=== PATIENT | female | born 2005 | race Caucasian/White ===

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

== ENCOUNTER 2024-07-17 05:44 | Emergency (ER) | payer BC, OTHER ==
[2024-07-17] MEDS: Ondansetron 4 MG Tab.DIS PO ONE (05:58)
== END 2024-07-17 07:15 | disposition home or self-care (01) ==
LOC: LL.ED 05:44
DX: S00.03XA Contusion of scalp, initial encounter (principal); Z79.899 Other long term (current) drug therapy; Z91.013 Allergy to seafood; W22.8XXA Striking against or struck by other objects, initial encounter
CPT/HCPCS: 70450; 99283; A9270-GY